=== PATIENT | female | born 1965 | race Two or more races ===

== ENCOUNTER → 2019-01-25 | Outpatient (CLI) | payer OTHER ==
[2014-01-04 21:20] VITALS: BP 126/56
--- NOTE | 2019-01-25 12:51 | KCIC ---
MRI Cervical Spine Without Contrast History: Chronic neck pain into the upper extremities bilaterally right greater than left Technique: Multiplanar, multi sequential noncontrast MR imaging was performed of the cervical spine. Comparison: None Findings: There is some motion degradation. There is mild reversal of the lordotic curvature centered near C5-6. There is moderate to severe degenerative disc disease C5-6 and to lesser degree at C6-7. There is negligible grade 1 anterior spondylolisthesis C4-C5 and C3-C4. Cervical vertebral body stature is maintained. Cervical cord caliber is within normal limits without focal signal abnormality. There is trace C5-6 endplate edema likely reactive/degenerative in etiology. There is mild levoscoliosis of the cervical spine. C2-C3: Spinal canal and neural foramina are adequate. C3-C4: Neural foramina and spinal canal are adequate. C4-C5: Neural foramina and spinal canal are adequate. C5-C6: There is broad disc osteophyte complex, superimposed shallow protrusion. There is mild indentation upon the ventral thecal sac, central canal narrowed to about 8-9 mm also with mild right lateral recess stenosis. Left neural foramen is adequate. There is right uncovertebral degenerative change. There is moderate to severe narrowing of the right neural foramen. C6-C7: There is a posterior central protrusion about 1 to 2 mm AP, mild indentation upon the ventral thecal sac. Central canal is minimally narrowed to about 8-9 mm. Neural foramina are adequate. C7-T1: Spinal canal and neural foramina are adequate. Impression: 1. There is spinal stenosis about 8 to 9 mm at C5-6 and C6-7. There is degenerative disc disease at C5-6 and C6-7. There is minimal grade 1 anterior spondylolisthesis at C4-5 and C3-4. There is moderate to severe narrowing of the right C5-6 neural foramen in part from uncovertebral degenerative change. Electronically signed by: Krzysztof Burt MD (01/25/2019 12:49 PM) [id number]
--- NOTE | 2019-01-25 13:18 | KCIC ---
MRI Lumbar Spine without contrast History: Chronic low back pain, previous injury Technique: Multiplanar, multi sequential noncontrast MR imaging was performed of the lumbar spine. Comparison: CT lumbar spine exam January 04, 2014, no previous MRI exam available Findings: Lumbar vertebral body stature is maintained. Conus terminates near T12-L1. There is mild to moderate degenerative disc disease at L4-5, minimally at L3-4 and L2-3, mild disc desiccation L5-S1 and L1-2. There is negligible anterior spondylolisthesis L4-5. There is no significant marrow edema. There is very mild lumbar dextroscoliosis. There is very mild degenerative endplate change superiorly of L5 with associated tiny Schmorl's node. L1-L2: This level was not included on the axial images. Neural foramina and spinal canal are adequate. L2-L3: There is minimal buckling of the ligamentum flavum. There is negligible disc osteophyte complex and bulge. Spinal canal and neural foramina are adequate. L3-L4: There is mild buckling of the ligamentum flavum and facet hypertrophic change. There is very minimal bulge. There is anterior annular tear. Spinal canal is overall adequate. Neural foramina are adequate. L4-L5: There is minimal bulge. There is minimal facet degenerative change. Spinal canal is overall adequate. There is minimal narrowing of the right neural foramen, left neural foramen adequate. There is anterior annular tear. L5-S1: Spinal canal is adequate. There is minimal facet degenerative change greater on the right. There is very mild narrowing of the right neural foramen, left neural foramen adequate. Impression: 1. There is no significant lumbar spinal stenosis. There is mild lumbar dextroscoliosis. There is mild to moderate degenerative disc disease at L4-5, minimally at other levels. There is negligible anterior spondylolisthesis L4-5. There is minimal narrowing of the right L4-5 and L5-S1 neural foramina. Electronically signed by: Krzysztof Burt MD (01/25/2019 1:16 PM) [id number]
== END | disposition home or self-care (01) ==
LOC: KCIC MRI 11:33
PROVIDERS: ATTEND Family Medicine
DX: M50.322 Other cervical disc degeneration at C5-C6 level (principal); M51.36 Other intervertebral disc degeneration, lumbar region; M47.817 Spondylosis without myelopathy or radiculopathy, lumbosacral region; M47.812 Spondylosis without myelopathy or radiculopathy, cervical region; M43.12 Spondylolisthesis, cervical region; M50.222 Other cervical disc displacement at C5-C6 level; M48.061 Spinal stenosis, lumbar region without neurogenic claudication; M25.78 Osteophyte, vertebrae; M89.38 Hypertrophy of bone, other site; G89.29 Other chronic pain
CPT/HCPCS: 72141; 72148